=== PATIENT | female | born 1955 | race Hispanic/Latino ===

== ENCOUNTER 2018-12-30 09:07 | Outpatient (CLI) | payer BC ==
--- NOTE | 2018-12-30 11:13 | BD ---
BONE DENSITOMETRY USING DEXA: Date: 12/30/18 HISTORY: Postmenopausal screening for osteoporosis. FINDINGS: Lumbar Spine: BMD (g/cm2) L1 0.786 T-Score: -1.9 Z-Score: -0.5 L2 0.870 T-Score: -1.4 Z-Score: 0.0 L3 1.024 T-Score: -0.5 Z-Score: 1.0 L4 0.828 T-Score: -2.1 Z-Score: -0.5 L1-L4 0.881 T-Score: -1.5 Z-Score: 0.0 Femoral Neck: 0.654 T-Score: -1.8 Z-Score: -0.4 Total Femur: 0.723 T-Score: -1.8 Z-Score: -0.8 There has been interval reduction of 6.3% in the bone mineral density of the lumbar spine and a reduc tion of 2.7% in the bone mineral density of the proximal femur since 06/28/17. The 10 year fracture risk for a major osteoporotic fracture is 8.5% and for a hip fracture is 9.8%. IMPRESSION: Osteopenia. POS: [facility]
== END 2018-12-30 09:08 | disposition home or self-care (01) ==
LOC: BICMAMMO 09:07
PROVIDERS: ATTEND Family Medicine
DX: Z12.31 Encounter for screening mammogram for malignant neoplasm of breast (principal); Z78.0 Asymptomatic menopausal state; M85.89 Other specified disorders of bone density and structure, multiple sites
CPT/HCPCS: 77063; 77067; 77080

== ENCOUNTER 2019-10-12 17:30 | Outpatient (CLI) | payer BC | END 2019-10-12 17:31 | disposition home or self-care (01) | LOC: SLEEPLAB 17:30 | PROVIDERS: ATTEND Family Medicine | DX: G47.33 Obstructive sleep apnea (adult) (pediatric) (principal); R53.83 Other fatigue; F32.9 Major depressive disorder, single episode, unspecified; K21.9 Gastro-esophageal reflux disease without esophagitis; I10 Essential (primary) hypertension; E66.9 Obesity, unspecified; R06.83 Snoring; G47.00 Insomnia, unspecified; Z68.32 Body mass index [BMI] 32.0-32.9, adult | CPT/HCPCS: 95806 ==

== ENCOUNTER 2022-12-01 07:18 | Outpatient (CLI) | payer BC ==
[2022-12-01] MEDS ORDERED: GASTROGRAFIN 30 ML BOT ONE (08:36)
[2022-12-01] MEDS ORDERED: Iopamidol 370 76% 100 ML VIAL ONE (08:36)
== END 2022-12-01 07:19 | disposition home or self-care (01) ==
LOC: CT 07:18
PROVIDERS: ATTEND Internal Medicine Gastroenterology
DX: D3A.026 Benign carcinoid tumor of the rectum (principal); K57.30 Diverticulosis of large intestine without perforation or abscess without bleeding; K76.0 Fatty (change of) liver, not elsewhere classified; K44.9 Diaphragmatic hernia without obstruction or gangrene
CPT/HCPCS: 74177; 82565; Q9963; Q9967

== ENCOUNTER 2022-12-17 11:46 | Outpatient (CLI) | payer BC | END 2022-12-17 11:47 | disposition home or self-care (01) | LOC: BICRAD 11:46 | PROVIDERS: ATTEND Internal Medicine Rheumatology | DX: M54.2 Cervicalgia (principal); M47.812 Spondylosis without myelopathy or radiculopathy, cervical region; M50.31 Other cervical disc degeneration, high cervical region | CPT/HCPCS: 72050 ==

== ENCOUNTER 2023-08-12 14:35 | Outpatient (CLI) | payer BC | END 2023-08-12 14:36 | disposition home or self-care (01) | LOC: BICMAMMO 14:35 | PROVIDERS: ATTEND Family Medicine | DX: M85.80 Other specified disorders of bone density and structure, unspecified site (principal); M54.50 Low back pain, unspecified; M85.89 Other specified disorders of bone density and structure, multiple sites; M47.816 Spondylosis without myelopathy or radiculopathy, lumbar region | CPT/HCPCS: 72100; 77080 ==

== ENCOUNTER 2023-09-02 12:22 | Observation (INO) | payer BC ==
[2023-09-02 12:54] LABS: #Eosinphils 0.2 thou/uL (0.0-0.7); #Monocytes 0.5 thou/uL (0.11-0.59); #Neutrophils 3.1 thou/uL (1.40-6.50); %Basophils 0.5 % (0.0-1.0); %Lymphocytes 32.9 % (21.0-51.0); %Monocytes 9.1 % (0.0-10.0); %Neutrophils 54.3 % (42.0-75.0); Hematocrit 38.4 % (36.0-47.0); Hemoglobin 12.8 g/dL (12.0-16.0); Mean Corpuscular HGB CONC 33.3 g/dL (32.0-36.0); Mean Corpuscular Hemoglobin 29.6 pg (27.0-31.0); Mean Corpuscular Volume 88.9 fl (78.0-98.0); Platelet Count 247 10x3/uL (130-400); Red Blood Cell (RBC) Count 4.32 mill/uL (4.20-5.40); White Blood Cell (WBC) Count 5.7 10x3/uL (4.8-10.8)
[2023-09-02] MEDS ORDERED: Metoclopramide HCl 10 MG/2 ML VIAL ONE (12:58)
[2023-09-02] MEDS ORDERED: Acetaminophen 500 MG TAB ONE (12:58)
[2023-09-02] MEDS ORDERED: diphenhydrAMINE 50 MG/ML VIAL ONE (12:58)
[2023-09-02 13:19] LABS: PTT 28.3 sec (22.9-36.1); Prothrombin Time 13.1 sec (12.0-14.7)
[2023-09-02 13:25] LABS: ALT (SGPT) 19 U/L (8-55); AST (SGOT) 15 U/L (5-34); Albumin 4.1 g/dL (3.4-4.8); Alkaline Phosphatase 106 U/L (40-110); Anion Gap 12 mmol/L (10-20); BUN (Urea Nitrogen) 12 mg/dL (9.8-20.1); Bilirubin, Total 0.3 mg/dL (0.2-1.2); Calc. Creatinine Clearance 0 mL/min (70-130); Calcium 9.6 mg/dL (7.8-10.44); Carbon Dioxide 27 mmol/L (23-31); Chloride 103 mmol/L (98-107); Estimated GFR 76; Globulin 2.6 g/dL (2.4-3.5); Glucose 86 mg/dL (80-115); Protein, Total 6.7 g/dL (5.8-8.1); Sodium 138 mmol/L (136-145)
[2023-09-02 13:29] LABS: Troponin I Less than 0.010 ng/mL (< 0.028)
[2023-09-02] MEDS ORDERED: Aspirin Chewable 81 MG TAB ONE (13:44)
[2023-09-02] MEDS ORDERED: Calcium Carbonate 500 MG ChewTAB PO PRN (14:22)
[2023-09-02] MEDS ORDERED: Ondansetron ODT 4 MG TAB PO PRN (14:22)
[2023-09-02] MEDS ORDERED: Acetaminophen 325 MG TAB PO PRN (14:22)
[2023-09-02] MEDS ORDERED: Ondansetron PF 4 MG/2 ML Vial IVP PRN (14:22)
[2023-09-02] MEDS ORDERED: Senokot S 8.6-50 MG TAB PO PRN (14:22)
[2023-09-02] MEDS ORDERED: hydrALAZINE 20 MG/ML VIAL SLOW IVP PRN (14:24)
[2023-09-02] MEDS ORDERED: Sodium Chloride 0.9% 1,000 ML IV SCH (14:30)
[2023-09-02] MEDS ORDERED: Famotidine 20 MG TAB PO SCH (21:00)
[2023-09-02] MEDS ORDERED: Atorvastatin Calcium 40 MG TAB PO SCH (21:00)
[2023-09-02] MEDS ORDERED: Multivit, Therapeutic 1 TAB PO SCH (21:00)
[2023-09-02] MEDS ORDERED: Cyanocobalamin (Vitamin B-12) 1,000 MCG TAB PO SCH (21:00)
[2023-09-02 23:53] VITALS: BMI 32.8
[2023-09-03 04:44] LABS: Cardiac Risk 3.8 (Less than 4.5)
[2023-09-03 04:58] LABS: Hemoglobin A1c 5.7 % (4.0-6.0)
[2023-09-03] MEDS ORDERED: Aspirin 325 mg Enteric Coated Tablet PO SCH (09:00)
[2023-09-03] MEDS ORDERED: FLU VACC QS2023(65UP)/MF59C/PF 60 MCG/0.5 ML SYRINGE IM ONE (09:00)
[2023-09-03 12:21] VITALS: TEMP 98.4
[2023-09-03 16:09] VITALS: BP 127/68
[2023-09-03] MEDS ORDERED: Atorvastatin Calcium 40 MG TAB PO SCH (21:00)
[2023-09-03] MEDS ORDERED: Metoprolol Tartrate 25 MG TAB PO SCH (21:00)
[2023-09-04] MEDS ORDERED: Venlafaxine HCl XR 150 MG CAP PO SCH (09:00)
== END 2023-09-03 18:50 | disposition home or self-care (01) ==
LOC: ERS 12:22 → ERHOLD 14:28 → 2SE 19:32
PROVIDERS: ADMIT Internal Medicine; ATTEND Internal Medicine
DX: G45.9 Transient cerebral ischemic attack, unspecified (principal); K21.9 Gastro-esophageal reflux disease without esophagitis; I12.9 Hypertensive chronic kidney disease with stage 1 through stage 4 chronic kidney disease, or unspecified chronic kidney disease; N18.2 Chronic kidney disease, stage 2 (mild); I47.10 Supraventricular tachycardia, unspecified; F41.9 Anxiety disorder, unspecified; E78.5 Hyperlipidemia, unspecified; H53.8 Other visual disturbances; E66.9 Obesity, unspecified; Z79.82 Long term (current) use of aspirin; Z88.1 Allergy status to other antibiotic agents; Z88.5 Allergy status to narcotic agent; Z88.6 Allergy status to analgesic agent; Z91.041 Radiographic dye allergy status; Z91.018 Allergy to other foods; Z88.8 Allergy status to other drugs, medicaments and biological substances; Z90.49 Acquired absence of other specified parts of digestive tract; Z90.710 Acquired absence of both cervix and uterus; Z68.32 Body mass index [BMI] 32.0-32.9, adult
CPT/HCPCS: 36415; 36416; 70450; 70551; 71045; 80053; 80061; 83036; 84484; 85025; 85610; 85730; 93005; 93306; 93880; 96365; 96372; 96375; G0378; J1200; J1650; J2765; J7050

== ENCOUNTER 2024-05-16 08:59 | Outpatient (CLI) | payer BC ==
[2024-05-16] MEDS ORDERED: Iopamidol 370 76% 100 ML VIAL ONE (09:04)
== END 2024-05-16 09:00 | disposition home or self-care (01) ==
LOC: CT 08:59
PROVIDERS: ATTEND Internal Medicine Gastroenterology
DX: D3A.026 Benign carcinoid tumor of the rectum (principal); K76.89 Other specified diseases of liver; K57.30 Diverticulosis of large intestine without perforation or abscess without bleeding; K44.9 Diaphragmatic hernia without obstruction or gangrene; N94.89 Other specified conditions associated with female genital organs and menstrual cycle
CPT/HCPCS: 74177; 82565